=== PATIENT | male | born 1955 | race African-American/Black ===

== ENCOUNTER 2016-10-13 12:04 | Emergency (ER) | payer OTHER ==
[~2016-10-13] VITALS: Ht 175.3 cm; Wt 76.0 kg
[2016-10-13 12:07] VITALS: BP 193/108; PULSE 58; RESP 16; TEMP 97.9; O2SAT 99
--- NOTE | 2016-10-13 14:31 | PD ---
HPI Chief Complaint: Laceration/Skin Injury Time Seen by Provider: 14:31 Travel History International Travel<30 days: No Contact w/Intl Traveler<30days: No Traveled to known affect area: No History of Present Illness HPI 60-year-old male who is right handed presents to emergency department for evaluation a laceration sustained to the distal left third digit when a door at work slammed on it. Patient reports significant pain of the distal left digit. Rates it an 8 out of 10. He reports no alterations in sensation. Pain is exacerbated by movement. He is up-to-date on his tetanus vaccination. No other symptoms to report. [facility] Past Medical History Medical History: Denies Significant Hx Asthma: No Cancer: No Cerebrovascular Accident: No Diabetes: No Myocardial Infarction: No Seizures: No Social History Alcohol Use: No (QUIT TEN YRS AGO) Tobacco Use: No (QUIT 30 YRS AGO) Substance Use: No Allergies-Medications (Allergen,Severity, Reaction): Coded Allergies: No Known Allergies (Unverified , 10/13/16) Reported Meds & Prescriptions Reported Meds & Active Scripts Active Lortab (Hydrocodone-Acetaminophen) 5-325 Mg Tab 1 Tab PO Q6H PRN Ibuprofen 600 Mg Tab 600 Mg PO Q8HR PRN Keflex (Cephalexin) 500 Mg Cap 500 Mg PO Q6H 5 Days Review of Systems Except as stated in HPI: all other systems reviewed are Neg Physical Exam Narrative GENERAL: Well-nourished elderly male patient, in no acute distress SKIN: Warm and dry. 3 cm laceration across the volar surface of the distal left third digit. There is also a small area of bleeding under the distal aspect of the left nail. Subungual hematoma noted under the left third digit nail. HEAD: Atraumatic. Normocephalic. EYES: Pupils equal and round. No scleral icterus. No injection or drainage. ENT: No nasal bleeding or discharge. Mucous membranes pink and moist. NECK: Trachea midline. No JVD. CARDIOVASCULAR: Regular rate and rhythm. No murmur appreciated. RESPIRATORY: No accessory muscle use. Clear to auscultation. Breath sounds equal bilaterally. MUSCULOSKELETAL: No obvious deformities. No clubbing. No cyanosis. No edema. Patient can fully flex and extend the affected digit however this does cause pain. Sensation intact distal affected digit. 2. discrimination intact. Cap refill within normal limits. NEUROLOGICAL: Awake and alert. No obvious cranial nerve deficits. Motor grossly within normal limits. Normal speech. PSYCHIATRIC: Appropriate mood and affect; insight and judgment normal. Data Data Last Documented VS Vital Signs Date Time Temp Pulse Resp B/P Pulse Ox O2 Delivery O2 Flow Rate FiO2 10/13/16 12:07 97.9 58 16 193/108 99 Room Air Orders Finger ([id number]) (10/13/16 ) Iv Access Insert/Monitor (10/13/16 15:08) Cefazolin Inj (Ancef Inj) (10/13/16 15:15) Lidocaine 2% Inj (Xylocaine 2% Inj) (10/13/16 15:15) Bupivacaine Pf 0.5% Inj (Marcaine Pf 0.5 (10/13/16 15:15) MDM Medical Decision Making Medical Screen Exam Complete: Yes Emergency Medical Condition: Yes Medical Record Reviewed: Yes Differential Diagnosis Laceration superficial versus deep versus open fracture versus tendon injury versus avulsion versus amputation Narrative Course 60-year-old male presents to the emergency for evaluation a left third digit injury. X-ray imaging shows a transverse, minimally displaced distal tuft fracture of the left third digit. Patient was given IV Ancef. Duration is loosely approximated. It is placed in a splint. Patient is instructed to follow-up with hand specialist this week. He'll be started on oral antibiotics. He verbalizes understanding and will return immediately with any acute worsening of symptoms. Procedures Procedure Narrative Verbal consent was obtained prior to procedure Digital block of the left third digit is complete using 0.5% bupivacaine and 2% lidocaine without epinephrine and a one-to-one ratio. A total of 5 mL is used. Proper anesthesia is achieved. Digit remains neurovascularly intact. LACERATION LOCATION: Left third digit LENGTH: 3 cm NUMBER OF STITCHES/MILAN: 5 sutures REPAIR: The area of the laceration was prepped with Betadine and sterilely draped. Digital block as described above The wound was copiously irrigated and explored without evidence of foreign body, tendon injury or neurovascular injury. The wound was closed using 4-0 chromic gut. This was a single layer repair. A sterile dressing was applied. The patient was advised to keep the dressing clean and dry. Patient tolerated the procedure well. Diagnosis Primary Impression: Open fracture of distal phalanx of left middle finger Qualified Code: S62.663B - Open nondisplaced fracture of distal phalanx of left middle finger, initial encounter Referrals: Tony Solis MD Primary Care Physician Patient Instructions: Finger Fracture (ED), General Instructions Additional Instructions: Elevate to reduce pain and swelling Keep the area clean and dry Follow-up with a hand specialist. Call tomorrow for an appointment this week Return immediately to the emergency department with any acute worsening of symptoms Med/Other Pt SpecificInfo: Prescription(s) given Scripts Hydrocodone-Acetaminophen (Lortab)5-325 Mg Tab1 Tab PO Q6H PRN (PAIN GREATER THAN 6) #15 TAB Ref 0 Prov:Saar Jennings MD 10/13/16 Ibuprofen 600 Mg [id number] Mg PO Q8HR PRN (PAIN) #30 TAB Ref 0 Prov:Karla Curry 10/13/16 Cephalexin (Keflex)500 Mg [id number] Mg PO Q6H 5 Days Ref 0 Prov:Karla Curry 10/13/16 Disposition: 01 DISCHARGE HOME Condition: Stable Karla Curry Oct 13, 2016 14:31
--- NOTE | 2016-10-13 15:06 | RADRPT ---
EXAM DATE/TIME: 10/13/2016 15:12 [place] COMPARISON: No previous studies available for comparison. INDICATIONS : Slammed 3rd digit of left hand in the door at work today MEDICAL HISTORY : None. SURGICAL HISTORY : None. ENCOUNTER: Initial ACUITY: 1 day PAIN SCORE: 4/10 LOCATION: Left 3rd digit FINDINGS: 3 views of the left hand third digit demonstrate a transverse minimally displaced fracture of the thi rd digit distal phalanx tuft. Distal fragment is displaced by approximately 2 mm. There is associated soft tissue swelling of the distal digit. Remaining left hand structures demonstrate no acute findin g. No radiopaque foreign body is seen. CONCLUSION: Soft tissue swelling of the tip of the third digit with transverse minimally displaced fracture of th e distal phalangeal tuft. Zechariah Townsend MD on October 13, 2016 at 15:03 Board Certified Radiologist. This report was verified electronically.
[2016-10-13] MEDS ORDERED: BUPIVACAINE HCL PF 0.5% 10 ML VIAL INFIL ONE (15:15)
[2016-10-13] MEDS ORDERED: LIDOCAINE HCL 2% 20 ML VIAL INFIL ONE (15:15)
[2016-10-13] MEDS ORDERED: IBUP-232 PO (16:41)
[2016-10-13] MEDS ORDERED: CEPH-460 PO (16:41)
[2016-10-13] MEDS ORDERED: HYDR-3533 PO ×2 (17:01→17:09)
== END 2016-10-13 18:15 | disposition home or self-care (01) ==
LOC: NEPB 12:04
DX: S62.663B Nondisplaced fracture of distal phalanx of left middle finger, initial encounter for open fracture (principal); Z87.891 Personal history of nicotine dependence; W23.1XXA Caught, crushed, jammed, or pinched between stationary objects, initial encounter; Y99.0 Civilian activity done for income or pay
CPT/HCPCS: 12002; 73140; 96365; 99283; J0690